=== PATIENT | female | born 1985 | race Caucasian/White ===

== ENCOUNTER 2024-07-09 10:19 | Emergency (ER) | payer OTHER, SELFPAY ==
[~2024-07-09] VITALS: Ht 167.6 cm; Wt 116.9 kg
[2024-07-09 11:38] VITALS: TEMP 97.9
[2024-07-09 11:38] LABS: BASO % 0.2 % (0.0-1.0); EOS % 0.1 % (0.0-3.0); HEMATOCRIT 39.7 % (36.0-47.0); HEMOGLOBIN 13.6 g/dl (12.0-15.5); LYMPH # 1.6 10^3/uL (1.5-5.0); MEAN CORPUSCULAR HEMOGLOBIN 30.8 pg (27.0-33.0); MEAN CORPUSCULAR HGB CONC 34.3 g/dl (32.0-36.5); MEAN CORPUSCULAR VOLUME 89.8 fl (80.0-96.0); MONO # 0.7 10^3/uL (0.0-0.8); MONO % 7.1 % (2.0-8.0); NEUTROPHILS # 7.8 10^3/uL (1.5-8.5); NEUTROPHILS % 76.2 % (36.0-66.0); PLATELET COUNT, AUTOMATED 369 10^3/uL (150-450); RED BLOOD COUNT 4.42 10^6/uL (4.00-5.40); WHITE BLOOD COUNT 10.3 10^3/uL (4.0-10.0)
[2024-07-09 12:12] LABS: LIPASE 28 U/L (12-53)
[2024-07-09 12:14] LABS: ALBUMIN 4.1 G/DL (3.2-5.2); ALKALINE PHOSPHATASE 82 U/L (35-104); ALT/SGPT 35 U/L (7.0-40); AST/SGOT 10 U/L (<34); BILIRUBIN,DIRECT 0.2 MG/DL (<0.4); BILIRUBIN,TOTAL 0.5 MG/DL (0.3-1.2); BLOOD UREA NITROGEN 10 MG/DL (9-23); CALCIUM LEVEL 9.8 MG/DL (8.5-10.1); CARBON DIOXIDE LEVEL 25 MMOL/L (20-31); CHLORIDE LEVEL 104 MMOL/L (98-107); CREATININE FOR GFR 0.77 MG/DL (0.55-1.30); GLOMERULAR FILTRATION RATE > 60.0 (>58); GLUCOSE, FASTING 110 MG/DL (60-100); POTASSIUM SERUM 4.1 MMOL/L (3.5-5.1); SODIUM LEVEL 137 MMOL/L (136-145); TOTAL PROTEIN 7.4 G/DL (5.7-8.2)
[2024-07-09 12:49] LABS: HCG, SERUM QUALITATIVE NEGATIVE (NEGATIVE)
[2024-07-09] MEDS ORDERED: ISOVUE-370 76% 100ML VIAL As Ordered ONE (13:27)
[2024-07-09 13:30] VITALS: BP 165/92
[2024-07-09] MEDS: MORPHINE 2 MG/ML 1ML VIAL IV ONE (13:33)
[2024-07-09] MEDS: ONDANSETRON 4MG 2ML VIAL IV ONE (13:33)
[2024-07-09 14:04] VITALS: O2SAT 98
[2024-07-09] MEDS ORDERED: MUPI30CR TOP (14:56)
[2024-07-09] MEDS ORDERED: ONDA-282 PO (14:56)
[2024-07-09] MEDS ORDERED: ACET-907 PO (15:31)
== END 2024-07-09 15:38 | disposition home or self-care (01) ==
LOC: M ED 10:19
DX: L03.313 Cellulitis of chest wall (principal); R11.2 Nausea with vomiting, unspecified; F43.10 Post-traumatic stress disorder, unspecified; F17.290 Nicotine dependence, other tobacco product, uncomplicated; F12.10 Cannabis abuse, uncomplicated; Z88.8 Allergy status to other drugs, medicaments and biological substances; Z79.1 Long term (current) use of non-steroidal anti-inflammatories (NSAID)
CPT/HCPCS: 74177; 80048; 80076; 83605; 83690; 84703; 85025; 87040; 87486; 87581; 87633; 87798; 96374; 99284; J2405; Q9967

== ENCOUNTER 2025-07-11 14:51 | Emergency (ER) | payer OTHER, SELFPAY ==
[~2025-07-11] VITALS: Ht 167.6 cm; Wt 112.8 kg
[~2025-07-11 14:51] MED LIST: ACET-907 PO; MUPI30CR TOP; ONDA-282 PO
[2025-07-11 18:01] LABS: BASO # 0.1 10^3/uL (0.0-0.2); BASO % 0.7 % (0.0-1.0); EOS # 0.3 10^3/uL (0.0-0.5); EOS % 3.2 % (0.0-3.0); LYMPH # 2.5 10^3/uL (1.5-5.0); LYMPH % 28.4 % (24.0-44.0); MONO # 0.6 10^3/uL (0.0-0.8); MONO % 6.3 % (2.0-8.0); NEUTROPHILS # 5.4 10^3/uL (1.5-8.5); NEUTROPHILS % 61.3 % (36.0-66.0); PLATELET COUNT, AUTOMATED 343 10^3/uL (150-450)
[2025-07-11 18:09] LABS: KETONE, URINE AUTO RFX NEGATIVE (NEGATIVE); LEUKOCYTE ESTERASE UR AUTO RFX NEGATIVE (NEGATIVE); NITRITE, URINE AUTO RFX NEGATIVE (NEGATIVE); RBC, URINE AUTO RFX 0 /HPF (0-3); SQUAM EPITHELIAL CELL UR AURFX 5 /HPF (0-6); WBC, URINE AUTO RFX 2 /HPF (0-3)
[2025-07-11 18:25] LABS: AMPHETAMINES LEVEL URINE NEGATIVE (NEGATIVE); BARBITURATES URINE NEGATIVE (NEGATIVE); BENZODIAZEPINES URINE NEGATIVE (NEGATIVE); COCAINE METABOLITE URINE NEGATIVE (NEGATIVE); METHADONE URINE NEGATIVE (NEGATIVE); OPIATES URINE NEGATIVE (NEGATIVE); PHENCYCLIDINE URINE NEGATIVE (NEGATIVE)
[2025-07-11 18:27] LABS: CANNABINOIDS URINE POSITIVE (NEGATIVE)
[2025-07-11] MEDS: NS (Normal Saline) 0.9% 1,000 ML IV ONE (18:27)
[2025-07-11 18:29] LABS: ETHYL ALCOHOL (ETHANOL) < 0.003 % (0.000-0.010)
[2025-07-11 18:30] LABS: SALICYLATE LEVEL < 3.0 MG/DL (<30)
[2025-07-11 18:31] LABS: ALT/SGPT 11 U/L (7.0-40); AST/SGOT 11 U/L (<34); CALCIUM LEVEL 8.5 MG/DL (8.5-10.1); CARBON DIOXIDE LEVEL 26 MMOL/L (20-31); CHLORIDE LEVEL 104 MMOL/L (98-107); CREATININE FOR GFR 0.70 MG/DL (0.55-1.30); GLOMERULAR FILTRATION RATE > 90.0 (>58); POTASSIUM SERUM 4.5 MMOL/L (3.5-5.1); SODIUM LEVEL 139 MMOL/L (136-145)
[2025-07-11 18:33] LABS: CPK CREATINE PHOSPHOKINASE 40 U/L (34-145)
[2025-07-11 18:35] LABS: HCG, SERUM QUALITATIVE NEGATIVE (NEGATIVE)
[2025-07-11 19:00] VITALS: BP 146/83; TEMP 97
[2025-07-11 19:06] VITALS: O2SAT 98
== END 2025-07-11 19:15 | disposition home or self-care (01) ==
LOC: M ED 14:51
DX: G40.89 Other seizures (principal); R00.1 Bradycardia, unspecified; F31.9 Bipolar disorder, unspecified; F15.10 Other stimulant abuse, uncomplicated